=== PATIENT | female | born 1985 | race Caucasian/White ===

== ENCOUNTER → 2023-05-11 | Outpatient (CLI) | payer BC ==
--- NOTE | 2023-05-11 13:34 | MR ---
EXAMINATION TYPE: MR brain wo con DATE OF EXAM: 05/11/2023 1:26 PM COMPARISON: None. CLINICAL INDICATION:Female, 37 years old with history of R51.9 HEADACHE; PHH, TECHNIQUE: Multi planar, multi sequence imaging was performed through the brain. No gadolinium was gi zachery. FINDINGS: The patterson-white junctions, ventricular system, and cisterns appear unremarkable. No FLAIR signal abno rmality identified. Midline structures show no abnormality. Diffusion-weighted imaging shows no evide nce of restricted diffusion. The susceptibility weighted images do not reveal any evidence for micro- hemorrhage. The bone marrow signal is within normal limits. The globes are unremarkable. Likely 9 mm mucous reten tion cyst within the inferior left maxillary sinus. Paranasal sinuses and mastoid air cells are clear . IMPRESSION: No evidence of intracranial mass or acute/subacute infarct.
== END | disposition home or self-care (01) ==
LOC: RADMRIMAIN 11:33
PROVIDERS: ATTEND Family Medicine
DX: R51.9 Headache, unspecified (principal)
CPT/HCPCS: 70551